=== PATIENT | female | born 1970 | race Two or more races ===

== ENCOUNTER 2017-07-20 21:34 | Emergency (ER) | payer SELFPAY ==
[~2017-07-20] VITALS: Ht 152.4 cm; Wt 61.2 kg
[2017-07-20] MEDS ORDERED: MORPHINE SULFATE 4 MG/1 ML DISP.SYRIN IM ONE (22:15)
[2017-07-20] MEDS ORDERED: ONDANSETRON 4 MG/2 ML VIAL IM ONE (22:15)
[2017-07-20] MEDS ORDERED: ONDANSETRON 4 MG/2 ML VIAL ONE (22:27)
[2017-07-20] MEDS ORDERED: MORPHINE SULFATE 4 MG/1 ML DISP.SYRIN ONE (22:27)
--- NOTE | 2017-07-20 22:34 | NUR ---
Patient discharged to home in stable conditon. Written and verbal after care instructions given. Patient verbalizes understanding of instructions.
[2017-07-20 22:35] VITALS: BP 110/82
== END 2017-07-20 22:36 | disposition home or self-care (01) ==
LOC: ER 21:37
DX: M54.30 Sciatica, unspecified side (principal)
CPT/HCPCS: 96372 ×2; 99284; A4663; J2270; J2405

== ENCOUNTER 2017-10-05 10:35 | Inpatient (IN) | payer OTHER ==
[~2017-10-05] VITALS: Ht 152.4 cm; Wt 61.2 kg
[2017-10-05 10:58] LABS: *BILIRUBIN,URIN NEGATIVE (NEGATIVE); *BLOOD, URINE 3+ (NEGATIVE); *CLARITY,URINE CLOUDY (CLEAR); *COLOR,URINE YELLOW (YELLOW); *KETONES,URINE NEGATIVE (NEGATIVE); *UROBILINOGEN,URINE 0.2 E.U./dl (NORMAL); LEUKOCYTE ESTERASE ,URINE 3+ (NEGATIVE); NITRITE, URINE POSITIVE (NEGATIVE); UGLUCOSE NEGATIVE (NEGATIVE)
[2017-10-05 11:01] LABS: *URINE HCG, QUAL NEGATIVE (NEGATIVE)
[2017-10-05 11:11] LABS: *PROTEIN,URINE 3+ (NEGATIVE)
--- NOTE | 2017-10-05 11:11 | NUR ---
urine protein 3+ er made aware, BRYCE Potts notified.
[2017-10-05 11:16] LABS: BACTERIA,URINE MANY /HPF (NONE SEEN); RBC,URINE 50-80 /HPF (0-3); SQUAMOUS EPITHELIAL CELL,UR FEW /HPF (NONE SEEN); WBC,URINE TNTC /HPF (0-3)
[2017-10-05] MEDS ORDERED: CEFTRIAXONE 1 G in IV DEXTROSE 5% 50 ML IV ONE (11:23)
[2017-10-05] MEDS ORDERED: PHENAZOPYRIDINE HCL 100 MG TABLET PO ONE (11:23)
[2017-10-05] MEDS ORDERED: IV NS 1000 ML 1,000 ML IV ONE (11:30)
[2017-10-05] MEDS ORDERED: CEFTRIAXONE 1 G VIAL ONE (11:56)
[2017-10-05] MEDS ORDERED: PHENAZOPYRIDINE HCL 100 MG TABLET ONE (11:57)
[2017-10-05] MEDS ORDERED: HYDROCODONE/APAP 5-325MG TABLET PO ONE (14:15)
[2017-10-05] MEDS ORDERED: HYDROCODONE/APAP 5-325MG TABLET ONE (14:33)
[2017-10-05 15:17] LABS: BASOPHILS # (AUTO) 0.1 K/uL (0.0-8.0); BASOPHILS % (AUTO) 0.6 % (0.0-2.0); EOSINOPHILS # (AUTO) 0.1 K/uL (0.0-0.7); EOSINOPHILS % (AUTO) 0.9 % (0.0-7.0); HEMATOCRIT 40.9 % (37-47); HEMOGLOBIN 13.6 G/DL (12.0-16.0); LYMPHOCYTES # (AUTO) 1.4 K/UL (0.8-4.8); LYMPHOCYTES % (AUTO) 13.6 % (20.5-51.5); MEAN CORPUSCULAR HEMOGLOBIN 28.7 UUG (27.0-31.0); MEAN CORPUSCULAR HGB CONC 33 g/dL (32.0-37.0); MEAN CORPUSCULAR VOLUME 86.2 FL (81.0-99.0); MONOCYTES # (AUTO) 0.6 K/UL (0.1-1.30); MONOCYTES % (AUTO) 6.2 % (0.0-11.0); NEUTROPHILS # (AUTO) 7.8 K/UL (1.8-8.9); NEUTROPHILS % (AUTO) 78.7 % (38.5-71.5); PLATELET COUNT (AUTO) 204 K/UL (150-450); RED BLOOD CELL COUNT(AUTO) 4.74 MIL/UL (4.2-5.4)
[2017-10-05 15:27] LABS: BILIRUBIN,TOTAL 0.4 mg/dL (0.2-1.0); CREATININE 0.8 mg/dL (0.6-1.3); POTASSIUM 3.9 mmol/L (3.5-5.1); TOTAL PROTEIN, SERUM 6.5 g/dL (6.4-8.2)
[2017-10-05] MEDS ORDERED: HYDROCODONE/APAP 10-325 MG TABLET PO PRN (16:00)
[2017-10-05] MEDS ORDERED: HYDROCODONE/APAP 5-325MG TABLET PO PRN (16:00)
[2017-10-05] MEDS ORDERED: MAGNESIUM HYDROXIDE 30 ML LIQUID UDC PO PRN (16:00)
[2017-10-05] MEDS ORDERED: ACETAMINOPHEN 325 MG TABLET PO PRN (16:00)
[2017-10-05] MEDS ORDERED: HYDROMORPHONE 1 MG/1 ML DISP.SYRIN IV PRN (16:00)
[2017-10-05] MEDS ORDERED: ONDANSETRON 4 MG/2 ML VIAL IV PRN (16:00)
[2017-10-05] MEDS ORDERED: Z GUARD REMEDY PASTE 57 GM TUBE TOP PRN (16:00)
--- NOTE | 2017-10-05 16:30 | NUR ---
PT IS STABLE, CALM, COOPERATIVE, AOX4, PT PAIN 2/10 REFUSES PAIN MEDICATION. PAIN GOAL IS 2 AND BELOW. AMBULATORY, REGULAR DIET, AND SKIN INTACT.
[2017-10-05] MEDS ORDERED: HYDROMORPHONE 4 MG/1 ML DISP.SYRIN IV PRN (16:45)
[2017-10-05 16:50] VITALS: BP 112/64
[2017-10-05 20:00] VITALS: BP 108/71
[2017-10-06] MEDS: IV NS 1000 ML 1,000 ML IV PRN ×2 (04:04→18:07)
--- NOTE | 2017-10-06 05:49 | NUR ---
Patient slept intermittently, in no acute distress. IVF running, no infiltration noted. Patient reported taking Cymbalta 30mg BID tablets at home. MD aware, orders to continue carried out. Addendum: 10/06/17 at 0554 by GATITO JOHNSON RN Add: Patient reports discomfort on low abdomen but declines pain medication. Made comfortable in bed, needs attended and met. Safety measures in place, will continue to monitor.
[2017-10-06 06:18] VITALS: BP 115/73
[2017-10-06 06:55] LABS: BASOPHILS % (AUTO) 0.4 % (0.0-2.0); EOSINOPHILS # (AUTO) 0.1 K/uL (0.0-0.7); EOSINOPHILS % (AUTO) 1.4 % (0.0-7.0); HEMATOCRIT 38.6 % (31.2-41.9); HEMOGLOBIN 13.2 g/dL (10.9-14.3); LYMPHOCYTES # (AUTO) 1.8 K/uL (20.0-40.0); LYMPHOCYTES % (AUTO) 19.1 % (20.5-51.5); MEAN CORPUSCULAR HEMOGLOBIN 29.7 uug (24.7-32.8); MEAN CORPUSCULAR HGB CONC 34 g/dL (32.3-35.6); MEAN CORPUSCULAR VOLUME 86.8 fL (75.5-95.3); MONOCYTES # (AUTO) 0.6 K/uL (2.0-10.0); NEUTROPHILS # (AUTO) 6.6 K/uL (1.8-8.9); NEUTROPHILS % (AUTO) 72.1 % (38.5-71.5); PLATELET COUNT (AUTO) 178 K/uL (179-408); RED BLOOD CELL COUNT(AUTO) 4.45 MIL/uL (3.63-4.92); WHITE BLOOD COUNT (AUTO) 9.2 K/uL (3.8-11.8)
[2017-10-06 07:21] LABS: CREATININE 0.7 mg/dL (0.6-1.3); POTASSIUM 3.7 mmol/L (3.5-5.1)
[2017-10-06 07:41] LABS: THYROID STIMULATING HORMONE 2.345 mIU/mL (0.358-3.740)
--- NOTE | 2017-10-06 08:00 | NUR ---
Pt is in no acute distress. Discussed plan of care with patient re: pain management, fall precaution. Pt agreeable with plan of care. Call light is within reach.
[2017-10-06] MEDS: DULOXETINE 30 MG CAPSULE.DR PO SCH ×2 (08:18→16:07)
[2017-10-06 11:57] VITALS: BP 109/71
[2017-10-06] MEDS: CEFTRIAXONE 1 G in IV DEXTROSE 5% 50 ML IV SCH (12:02)
[2017-10-06 15:54] VITALS: BP 127/76
[2017-10-06] MEDS ORDERED: DULO30CA2 PO (15:54)
--- NOTE | 2017-10-06 16:42 | NUR ---
PT states that she is having bloody urine. pt urinated and no hematuria noted. Will continue to assess pts urine via urine series. Pt is in no acute distress. Call light is within reach.
[2017-10-06 20:20] VITALS: BP 118/80
[2017-10-06] MEDS ORDERED: HYDROMORPHONE 1 MG/1 ML DISP.SYRIN IV PRN (20:30)
--- NOTE | 2017-10-06 21:00 | NUR ---
RN NOTES RECEIVED PATIENT LYING IN BED, AWAKE A/OX4, VERBALLY RESPONSIVE ABLE TO MAKE NEEDS KNOWN. HAS PAIN TO THE SUPRAPUBIC AREA, WILL MEDICATE ORDERED. HAS AN IV ACCESS TO THE L FA WITH IVF INFUSING, IV IS DRY AND INTACT WITH NO S/SX OF INFILTRATION OR PHLEBITIS NOTED. DUE MEDS GIVEN, SEE EMAR. VS ARE TAKEN AND RECORDED, STABLE, SEE FLOWSHEET. PM CARE PROVIDED. FALL PRECAUTIONS MAINTAINED AND SAFETY MEASURES REINFORCED. SKIN IS INTACT. ABLE TO AMBULATE INDEPENDENTLY TO THE BATHROOM, CALL LIGHT WITHIN REACH. WILL CONTINUE TO MONITOR.
[2017-10-06] MEDS: HYDROMORPHONE 4 MG/1 ML DISP.SYRIN IV PRN (21:15)
[2017-10-07] MEDS: HYDROMORPHONE 4 MG/1 ML DISP.SYRIN IV PRN ×3 (00:42→20:25)
--- NOTE | 2017-10-07 01:30 | NUR ---
RN NOTES ROUNDED. PT IS ASLEEP RESTING COMFORTABLY. NO S/SX OF DISTRESS NOTED. WILL CONTINUE TO MONITOR. SAFETY MAINTAINED.
[2017-10-07 06:54] VITALS: BP 121/87
[2017-10-07] MEDS: IV NS 1000 ML 1,000 ML IV PRN (07:57)
--- NOTE | 2017-10-07 08:00 | NUR ---
AWAKE ALERT COOPERATE WELL NO PAIN OR SOB CONTINUE IVF RERSTING WELL WITH CALL JOSUE IN REACH
[2017-10-07] MEDS: DULOXETINE 30 MG CAPSULE.DR PO SCH ×2 (08:41→16:43)
--- NOTE | 2017-10-07 11:00 | NUR ---
C/O H/A MED PO PRN GIVEN DR PACE SEE PATIENT AND LAB RESULT THIS AM AND NEW ORDER TO COLLECT UA TODAY
[2017-10-07 11:37] VITALS: BP 118/79
--- NOTE | 2017-10-07 12:00 | NUR ---
EAT LUNCH MOD AMT STATE H/A RELIEF BY PO MEDICATION URINE FOR UA SENT ORDER FAMILY DAUGHTER AT BEDSIDE
[2017-10-07] MEDS: CEFTRIAXONE 1 G in IV DEXTROSE 5% 50 ML IV SCH (12:15)
[2017-10-07 15:29] VITALS: BP 113/76
[2017-10-07 16:46] LABS: *BILIRUBIN,URIN NEGATIVE (NEGATIVE); *BLOOD, URINE Trace-intact (NEGATIVE); *COLOR,URINE YELLOW (YELLOW); *KETONES,URINE NEGATIVE (NEGATIVE); *PROTEIN,URINE NEGATIVE (NEGATIVE); *UROBILINOGEN,URINE 0.2 E.U./dl (NORMAL); LEUKOCYTE ESTERASE ,URINE 1+ (NEGATIVE); NITRITE, URINE NEGATIVE (NEGATIVE); UGLUCOSE NEGATIVE (NEGATIVE)
[2017-10-07 16:48] LABS: *CLARITY,URINE SLIGHTLY HAZY (CLEAR)
[2017-10-07 16:58] LABS: BACTERIA,URINE RARE /HPF (NONE SEEN); RBC,URINE 0-3 /HPF (0-3); SQUAMOUS EPITHELIAL CELL,UR FEW /HPF (NONE SEEN)
--- NOTE | 2017-10-07 17:45 | NUR ---
STABLE HEMODYNAMIC STATUS NO ACUTE DISTRESS NO PAIN OR N/V SAFETY MEASURE PROVIDED CALL LIGHT WITHIN REACH CONTINUE ON IVF
--- NOTE | 2017-10-07 20:00 | NUR ---
RN NOTES RECEIVED PATIENT LYING IN BED, AWAKE A/OX4, VERBALLY RESPONSIVE, ABLE TO MAKE NEEDS KNOWN. JENI IS AT BEDSIDE, READ TO PATIENT SOME OF HIS RESULTS THAT WERE DONE TODAY.DENIES PAIN OR ANY TYPE OF DISCOMFORT AT [facility]. HAS AN IV ACCESS TO THE L FA WITH IVF INFUSING, IV SITE STILI S DRY AND INTACT WITH NO S/SX OF INFILTRATION OR PHLEBITIS DUE MEDS GIVEN, SEE EMAR. VS ARE TAKEN AND RECORDED, STABLE, SEE FLOWSHEET. PM CARE PROVIDED. FALL PRECAUTIONS MAINTAINED AND SAFETY MEASURES REINFORCED. SKIN IS INTACT. ABLE TO AMBULATE INDEPENDENTLY TO THE BATHROOM, CALL LIGHT WITHIN REACH. WILL CONTINUE TO MONITOR.
[2017-10-07 20:12] VITALS: BP 121/80
[2017-10-08] MEDS: HYDROMORPHONE 4 MG/1 ML DISP.SYRIN IV PRN (00:05)
--- NOTE | 2017-10-08 05:40 | NUR ---
RN NOTES OFFERED PT PAIN MEDICATION, PT REMAINS FREEE OF PAIN. WASTED MED AND DISCONTINUED ORDERED.
[2017-10-08 06:25] VITALS: BP 107/77
--- NOTE | 2017-10-08 07:20 | NUR ---
RECEIVED REPORT FROM FELTING MACHINE OPERATOR HELPER NURSE, PATIENT IN BED AWAKE, NO EVIDENCE OF DISTRESS NOTED, BED IN LOW POSITION, SIDE RAILS UP X2. BED ALARM ON. PATIENT DOES NOT REPORT ANY PAIN, REINFORCED CALL LIGHT AND FALL PRECAUTIONS.
[2017-10-08] MEDS: DULOXETINE 30 MG CAPSULE.DR PO SCH (09:00)
[2017-10-08 11:58] VITALS: BP 116/75
[2017-10-08] MEDS: CEFTRIAXONE 1 G in IV DEXTROSE 5% 50 ML IV SCH ×2 (12:00→12:12)
[2017-10-08] MEDS: IV NS 1000 ML 1,000 ML IV PRN (13:49)
[2017-10-08 15:50] VITALS: BP_SYST 116; BP_SYST 121; BP_DIAS 75; BP_DIAS 83
--- NOTE | 2017-10-08 15:55 | NUR ---
Discharge teaching performed, provided patient with information on new prescription, provided a disc with radiologic results. IV removed, no evidence of bleeding, and patient was taken to be met by daughter and son for transportation home.
== END 2017-10-08 16:00 | disposition home or self-care (01) | DRG 463 ==
LOC: ER 10:35 → EDBD 16:10 → TELE 16:10 → MED 18:02
PROVIDERS: ADMIT Internal Medicine; ATTEND Nurse Practitioner Acute Care
DX: N10 Acute pyelonephritis (principal); N20.0 Calculus of kidney; B96.20 Unspecified Escherichia coli [E. coli] as the cause of diseases classified elsewhere; B37.3 Candidiasis of vulva and vagina; M54.9 Dorsalgia, unspecified; G89.29 Other chronic pain; Z80.9 Family history of malignant neoplasm, unspecified
CPT/HCPCS: 36415; 84443; 84703; 85025; 87077; 87086; A4663; J0696; J1170; J3490; J7030; J7060

== ENCOUNTER 2018-02-23 10:18 | Emergency (ER) | payer OTHER ==
[~2018-02-23] VITALS: Ht 152.4 cm; Wt 63.5 kg
[~2018-02-23 10:18] MED LIST: DULO30CA2 PO
--- NOTE | 2018-02-23 10:51 | NUR ---
PATIENT WAS SEEN BY DR LUNA FOR COUGH AND NOT FEELING WELL. STREP CULTURES OBTAINED AND SENT TO LAB.
--- NOTE | 2018-02-23 12:04 | NUR ---
DC, RX AND FOLLOW UP INSTRUCTIONS GIVEN AND EXPLAINED TO PATIENT WHO STATES SHE UNDERSTANDS ALL INSTRUCTIONS.
== END 2018-02-23 12:06 | disposition home or self-care (01) ==
LOC: ER 10:18
DX: J02.0 Streptococcal pharyngitis (principal); Z79.899 Other long term (current) drug therapy
CPT/HCPCS: 36415; 86403; 99283; A4663

== ENCOUNTER 2018-04-23 23:33 | Emergency (ER) | payer OTHER ==
[~2018-04-23] VITALS: Ht 157.5 cm; Wt 61.2 kg
--- NOTE | 2018-04-24 01:06 | NUR ---
DR PERICO COOPER MD AT BEDSIDE FOR MSE.
[2018-04-24 01:38] LABS: *BILIRUBIN,URIN NEGATIVE (NEGATIVE); *BLOOD, URINE NEGATIVE (NEGATIVE); *CLARITY,URINE CLEAR (CLEAR); *COLOR,URINE YELLOW (YELLOW); *KETONES,URINE NEGATIVE (NEGATIVE); *PROTEIN,URINE NEGATIVE (NEGATIVE); *UROBILINOGEN,URINE 0.2 E.U./dl (NORMAL); LEUKOCYTE ESTERASE ,URINE NEGATIVE (NEGATIVE); NITRITE, URINE NEGATIVE (NEGATIVE); UGLUCOSE NEGATIVE (NEGATIVE)
[2018-04-24 01:53] LABS: BACTERIA,URINE NONE SEEN /HPF (NONE SEEN); RBC,URINE 0-3 /HPF (0-3); SQUAMOUS EPITHELIAL CELL,UR MODERATE /HPF (NONE SEEN)
[2018-04-24 01:56] LABS: *URINE HCG, QUAL NEGATIVE (NEGATIVE)
--- NOTE | 2018-04-24 02:23 | NUR ---
PT RESTING IN BED W/ EYES CLOSED. BREATHING EVEN AND UNLABORED. NO ACUTE DISTRESS NOTED.
--- NOTE | 2018-04-24 03:41 | NUR ---
RADIOLOGY AT BEDSIDE FOR CHEST XRAY.
--- NOTE | 2018-04-24 04:29 | NUR ---
Patient discharged to home in stable conditon. Written and verbal after care instructions given. Patient verbalizes understanding of instructions. Pt ambulated from ER w/ steady gait. VSS. No distres noted. Denies CP, COB, N/V, dizziness. Pt took all personal belongings.
[2018-04-24 04:33] VITALS: BP 114/78
== END 2018-04-24 04:34 | disposition home or self-care (01) ==
LOC: ER 23:37
DX: J40 Bronchitis, not specified as acute or chronic (principal); N34.3 Urethral syndrome, unspecified; Z79.899 Other long term (current) drug therapy
CPT/HCPCS: 36415; 71045; 81001; 84703; 86403; 99285; A4663; 87086

== ENCOUNTER 2018-05-06 21:42 | Emergency (ER) | payer OTHER ==
[~2018-05-06] VITALS: Ht 154.9 cm; Wt 61.2 kg
--- NOTE | 2018-05-06 22:00 | NUR ---
Dr. Medina at bedside for MSE.
[2018-05-06] MEDS ORDERED: KETOROLAC TROMETHAMINE 30 MG INJ ONE (22:10)
[2018-05-06] MEDS ORDERED: KETOROLAC TROMETHAMINE 30 MG INJ IM ONE (22:15)
[2018-05-06 22:41] LABS: BASOPHILS % (AUTO) 0.6 % (0.0-2.0); EOSINOPHILS # (AUTO) 0.2 K/uL (0.0-0.7); EOSINOPHILS % (AUTO) 2.4 % (0.0-7.0); HEMATOCRIT 42.8 % (31.2-41.9); HEMOGLOBIN 14.4 g/dL (10.9-14.3); LYMPHOCYTES # (AUTO) 2.5 K/uL (20.0-40.0); LYMPHOCYTES % (AUTO) 33.9 % (20.5-51.5); MEAN CORPUSCULAR HEMOGLOBIN 28.5 uug (24.7-32.8); MEAN CORPUSCULAR HGB CONC 34 g/dL (32.3-35.6); MEAN CORPUSCULAR VOLUME 84.6 fL (75.5-95.3); MONOCYTES # (AUTO) 0.5 K/uL (2.0-10.0); MONOCYTES % (AUTO) 7.2 % (0.0-11.0); NEUTROPHILS # (AUTO) 4.1 K/uL (1.8-8.9); NEUTROPHILS % (AUTO) 55.9 % (38.5-71.5); PLATELET COUNT (AUTO) 209 K/uL (179-408); RED BLOOD CELL COUNT(AUTO) 5.05 MIL/uL (3.63-4.92); WHITE BLOOD COUNT (AUTO) 7.3 K/uL (3.8-11.8)
[2018-05-06 22:44] LABS: *BILIRUBIN,URIN NEGATIVE (NEGATIVE); *BLOOD, URINE 3+ (NEGATIVE); *CLARITY,URINE SLIGHTLY CLOUDY (CLEAR); *COLOR,URINE YELLOW (YELLOW); *KETONES,URINE TRACE (NEGATIVE); *PROTEIN,URINE NEGATIVE (NEGATIVE); *UROBILINOGEN,URINE 0.2 E.U./dl (NORMAL); LEUKOCYTE ESTERASE ,URINE TRACE (NEGATIVE); NITRITE, URINE NEGATIVE (NEGATIVE); UGLUCOSE NEGATIVE (NEGATIVE)
[2018-05-06 22:45] LABS: BILIRUBIN,DIRECT 0.1 mg/dL (0.0-0.2); BILIRUBIN,TOTAL 0.2 mg/dL (0.2-1.0); CREATININE 0.8 mg/dL (0.6-1.3); POTASSIUM 3.6 mmol/L (3.5-5.1); TOTAL PROTEIN, SERUM 6.4 g/dL (6.4-8.2)
[2018-05-06 22:50] LABS: *URINE HCG, QUAL NEGATIVE (NEGATIVE)
--- NOTE | 2018-05-06 22:56 | NUR ---
Pt out of ER for CT.
[2018-05-06 22:59] LABS: RBC,URINE 80-100 /HPF (0-3)
[2018-05-06 23:00] LABS: BACTERIA,URINE FEW /HPF (NONE SEEN); MUCUS,URINE FEW /LPF (0-FEW); SQUAMOUS EPITHELIAL CELL,UR MANY /HPF (NONE SEEN)
--- NOTE | 2018-05-06 23:07 | NUR ---
Pt back to ER from CT.
--- NOTE | 2018-05-07 00:39 | NUR ---
Patient discharged to home in stable conditon. Written and verbal after care instructions given. Patient verbalizes understanding of instructions. Patient ambulated out of ER with steady gait, no acute signs of distress, VSS, all belongings taken.
[2018-05-07 00:41] VITALS: BP 121/75
== END 2018-05-07 00:42 | disposition home or self-care (01) ==
LOC: ER 21:45
DX: R10.9 Unspecified abdominal pain (principal); Z79.899 Other long term (current) drug therapy
CPT/HCPCS: 36415; 74176; 80048; 80076; 81001; 83690; 84703; 85025; 96372; 99285; A4663; J1885

== ENCOUNTER 2018-05-14 15:28 | Emergency (ER) | payer OTHER ==
[~2018-05-14] VITALS: Ht 154.9 cm; Wt 63.5 kg
--- NOTE | 2018-05-14 16:28 | NUR ---
PT IS IN ROOM #2A. DR ROCA EVALUATED THE PT.
[2018-05-14 16:41] LABS: *AMPHETAMINE, URINE NEGATIVE (NEGATIVE); *BARBITURATE, URINE NEGATIVE (NEGATIVE); *CANNABINOID, URINE NEGATIVE (NEGATIVE); *COCCAINE, URINE NEGATIVE (NEGATIVE); *OPIATE, URINE NEGATIVE (NEGATIVE); *PHENCYCLIDINE SCREEN,URINE NEGATIVE (NEGATIVE)
--- NOTE | 2018-05-14 16:56 | NUR ---
PT WAS D/C TO HOME. D/C INSTRUCTIONS GIVEN TO THE PT.
[2018-05-14 16:57] VITALS: BP 132/66
== END 2018-05-14 16:58 | disposition home or self-care (01) ==
LOC: ER 15:31
DX: Z00.00 Encounter for general adult medical examination without abnormal findings (principal); Z79.899 Other long term (current) drug therapy
CPT/HCPCS: 80307; 99283; A4663

== ENCOUNTER 2018-09-04 18:57 | Emergency (ER) | payer OTHER ==
[~2018-09-04] VITALS: Ht 154.9 cm; Wt 63.5 kg
--- NOTE | 2018-09-04 19:10 | NUR ---
PATIENT WAS MSE AND EXAMINED BY DR ROCA IN ROOM 02B.
[2018-09-04] MEDS ORDERED: CEPHALEXIN MONOHYDRATE 500 MG CAPSULE ONE (19:22)
[2018-09-04] MEDS ORDERED: CEPHALEXIN MONOHYDRATE 500 MG CAPSULE PO ONE (19:30)
[2018-09-04 19:38] VITALS: BP 115/72
--- NOTE | 2018-09-04 19:40 | NUR ---
Patient discharged to home in stable conditon. Written and verbal after care instructions given. Patient verbalizes understanding of instructions.
== END 2018-09-04 19:40 | disposition home or self-care (01) ==
LOC: ER 19:00
DX: T81.49XA Infection following a procedure, other surgical site, initial encounter (principal)
CPT/HCPCS: A4663

== ENCOUNTER 2018-09-12 13:38 | Emergency (ER) | payer OTHER ==
[~2018-09-12] VITALS: Ht 154.9 cm; Wt 63.5 kg
--- NOTE | 2018-09-12 13:54 | NUR ---
Patient discharged to home in stable conditon. Written and verbal after care instructions given. Patient verbalizes understanding of instructions.
== END 2018-09-12 13:55 | disposition home or self-care (01) ==
LOC: ER 13:38
DX: R21 Rash and other nonspecific skin eruption (principal)
CPT/HCPCS: A4663

== ENCOUNTER 2019-05-15 12:54 | Emergency (ER) | payer OTHER ==
[~2019-05-15] VITALS: Ht 154.9 cm; Wt 59.0 kg
[2019-05-15 13:58] LABS: BASOPHILS % (AUTO) 0.5 % (0.0-2.0); EOSINOPHILS # (AUTO) 0.1 K/uL (0.0-0.7); EOSINOPHILS % (AUTO) 1.9 % (0.0-7.0); HEMATOCRIT 40.9 % (31.2-41.9); HEMOGLOBIN 13.6 g/dL (10.9-14.3); LYMPHOCYTES # (AUTO) 1.7 K/uL (20.0-40.0); LYMPHOCYTES % (AUTO) 22.5 % (20.5-51.5); MEAN CORPUSCULAR HEMOGLOBIN 28.2 uug (24.7-32.8); MEAN CORPUSCULAR HGB CONC 33 g/dL (32.3-35.6); MONOCYTES # (AUTO) 0.5 K/uL (2.0-10.0); MONOCYTES % (AUTO) 7.2 % (0.0-11.0); NEUTROPHILS # (AUTO) 5.1 K/uL (1.8-8.9); NEUTROPHILS % (AUTO) 67.9 % (38.5-71.5); PLATELET COUNT (AUTO) 222 K/uL (179-408); RED BLOOD CELL COUNT(AUTO) 4.81 MIL/uL (3.63-4.92); WHITE BLOOD COUNT (AUTO) 7.5 K/uL (3.8-11.8)
[2019-05-15 14:02] LABS: CREATININE 0.8 mg/dL (0.6-1.3)
--- NOTE | 2019-05-15 14:15 | NUR ---
PATIENT WAS SEEN BY MD. LABS COMPLETED. DC AND FOLLOW UP INSTRUCTIONS GIVEN AND EXPLAINED TO PATIENT WHO STATES SHE UNDERSTANDS ALL INSTRUCTIONS.
== END 2019-05-15 14:16 | disposition home or self-care (01) ==
LOC: ER 12:54
DX: B09 Unspecified viral infection characterized by skin and mucous membrane lesions (principal); Z79.899 Other long term (current) drug therapy
CPT/HCPCS: 36415; 85025; A4663

== ENCOUNTER 2019-08-08 23:57 | Inpatient (IN) | payer OTHER ==
[~2019-08-08] VITALS: Ht 165.1 cm; Wt 60.9 kg
[2019-08-09 01:05] LABS: BASOPHILS % (AUTO) 0.5 % (0.0-2.0); EOSINOPHILS # (AUTO) 0.2 K/uL (0.0-0.7); EOSINOPHILS % (AUTO) 1.8 % (0.0-7.0); HEMATOCRIT 43.3 % (31.2-41.9); HEMOGLOBIN 14.6 g/dL (10.9-14.3); LYMPHOCYTES # (AUTO) 2.4 K/uL (20.0-40.0); LYMPHOCYTES % (AUTO) 26.9 % (20.5-51.5); MEAN CORPUSCULAR HEMOGLOBIN 28.6 uug (24.7-32.8); MEAN CORPUSCULAR HGB CONC 34 g/dL (32.3-35.6); MEAN CORPUSCULAR VOLUME 84.9 fL (75.5-95.3); MONOCYTES # (AUTO) 0.5 K/uL (2.0-10.0); MONOCYTES % (AUTO) 5.3 % (0.0-11.0); NEUTROPHILS # (AUTO) 5.8 K/uL (1.8-8.9); NEUTROPHILS % (AUTO) 65.5 % (38.5-71.5); PLATELET COUNT (AUTO) 236 K/uL (179-408); WHITE BLOOD COUNT (AUTO) 8.9 K/uL (3.8-11.8)
[2019-08-09 01:10] LABS: CREATININE 0.8 mg/dL (0.6-1.3); POTASSIUM 3.7 mmol/L (3.5-5.1)
[2019-08-09 01:22] LABS: BILIRUBIN,DIRECT 0.1 mg/dL (0.0-0.2); BILIRUBIN,TOTAL 0.4 mg/dL (0.2-1.0); THYROID STIMULATING HORMONE 5.833 mIU/mL (0.358-3.740); TOTAL PROTEIN, SERUM 7.1 g/dL (6.4-8.2)
[2019-08-09] MEDS ORDERED: MORPHINE SULFATE 4 MG/1 ML DISP.SYRIN IV ONE (01:30)
[2019-08-09] MEDS ORDERED: IV NS 1000 ML 1,000 ML IV ONE (01:30)
--- NOTE | 2019-08-09 01:34 | NUR ---
DR WEBSTER SPOKE WITH DR GTZ NEUROLOGY CONSULT.
[2019-08-09] MEDS ORDERED: MORPHINE SULFATE 4 MG/1 ML DISP.SYRIN ONE (01:35)
--- NOTE | 2019-08-09 02:11 | NUR ---
Awaiting call back from El
[2019-08-09] MEDS ORDERED: ONDANSETRON 4 MG/2 ML VIAL IV PRN (03:00)
[2019-08-09] MEDS ORDERED: MAGNESIUM HYDROXIDE 30 ML LIQUID UDC PO PRN (03:00)
[2019-08-09] MEDS ORDERED: Z GUARD REMEDY PASTE 57 GM TUBE TOP PRN (03:00)
[2019-08-09] MEDS ORDERED: HYDROCODONE/APAP 5-325MG TABLET PO PRN (03:00)
--- NOTE | 2019-08-09 03:00 | NUR ---
Report given to BRYCE Hunter
--- NOTE | 2019-08-09 04:10 | NUR ---
Patient transported to [place] in stable condition.
--- NOTE | 2019-08-09 04:45 | NUR ---
Med Surg Admission Received patient via gurney, transported by ER nurse at 0400. Awake, alert and verbally responsive. Able to verbalize needs. Very pleasant and cooperative. Introduced self and made aware of room, and call light. Initial admission process initiated. All belongings accounted for, patient signed form and fully aware that hospital will not be liable for any loss that occurs. Family may bring belongings to home, just inform us. Identification band placed on patient. IV finished and discontinued. IV site is on R AC, intact and patent. Full physical assessment done, no skin breakdown noted. Pt verbalized 4/10 pain in the hips at rest, aggravates when turning, have to turn patient slowly to prevent pain. Pt also stated that she has no pain right now, but a few days ago has been experiencing pain in the thoracic/back area for the past few days. VS taken and recorded by Lisy AUSTIN, all within normal limits. Full interview done and recorded. Patient able to urinate on bed pain, clean urine sample collected and sent to the lab. Asked for turkey sandwich and juice, finished /. Tolerated well. Declined use of any pain medications at this time. All needs attended at this time. Will continue to Med Surg monitoring and endorse accordingly.
[2019-08-09 05:41] VITALS: BP 111/70
[2019-08-09 07:50] LABS: *BILIRUBIN,URIN NEGATIVE (NEGATIVE); *BLOOD, URINE NEGATIVE (NEGATIVE); *CLARITY,URINE CLEAR (CLEAR); *COLOR,URINE YELLOW (YELLOW); *KETONES,URINE NEGATIVE (NEGATIVE); *UROBILINOGEN,URINE 0.2 E.U./dl (NORMAL); LEUKOCYTE ESTERASE ,URINE NEGATIVE (NEGATIVE); NITRITE, URINE NEGATIVE (NEGATIVE); PH,URINE 5.5 (5.0-8.0); UGLUCOSE NEGATIVE (NEGATIVE)
[2019-08-09 07:56] LABS: *AMPHETAMINE, URINE NEGATIVE (NEGATIVE); *BARBITURATE, URINE NEGATIVE (NEGATIVE); *CANNABINOID, URINE NEGATIVE (NEGATIVE); *COCCAINE, URINE NEGATIVE (NEGATIVE); *OPIATE, URINE POSITIVE (NEGATIVE); *PHENCYCLIDINE SCREEN,URINE NEGATIVE (NEGATIVE)
--- NOTE | 2019-08-09 08:20 | NUR ---
Received patient awake in bed. AAox4. IV on R AC intact and patent. Neurological assessment performed. BLE extremity weakness noted. Patient able to follow command to move toes but unable to lift legs. Discussed plan of care with patient. Safety measures implemented. Will continue to monitor.
[2019-08-09] MEDS: ACETAMINOPHEN 325 MG TABLET PO PRN (09:44)
[2019-08-09 11:11] VITALS: BP 106/63
[2019-08-09] MEDS: HYDROCODONE/APAP 5-325MG TABLET PO PRN ×2 (12:53→19:37)
[2019-08-09 15:31] VITALS: BP 101/59
--- NOTE | 2019-08-09 18:28 | NUR ---
Patient complained of mid back/hip pain. Administered 1 dose of PRN Tylenol and [place] throughout shift. Tolerated. Patient resting in bed comfortably at this time. Rates pain of 2/10 on pain scale at this time. Will endorse to mold shifter nurse accordingly.
--- NOTE | 2019-08-09 19:30 | NUR ---
Received patient in bed awake, A&Ox4. No SOB noted, not in distress. Saline lock on R AC intact and patent. c/o 05/11 back and BLE pain, will medicated w/ PRN [place] 5-325mg. Patient able to move BLE. Safety measures observed. Call light within reach
[2019-08-09 20:26] VITALS: BP 101/70
--- NOTE | 2019-08-09 22:00 | NUR ---
For MRI of LSPINE w/o contrast in AM, MRI checklist done.
[2019-08-10] MEDS: HYDROCODONE/APAP 5-325MG TABLET PO PRN ×4 (03:51→19:46)
[2019-08-10 04:30] VITALS: BP 111/68
--- NOTE | 2019-08-10 06:30 | NUR ---
Patient slept intermittently. c/o 8/10 back pain, medicated w/ PRN [place]. Patient noted moving her legs but stating that she's worst than yesterday. Patient requesting to be transferred to different hosp, told patient that MRI of LSPINE will be done this AM to better diagnose her condition.
[2019-08-10 06:45] LABS: BASOPHILS % (AUTO) 0.5 % (0.0-2.0); EOSINOPHILS # (AUTO) 0.2 K/uL (0.0-0.7); EOSINOPHILS % (AUTO) 1.9 % (0.0-7.0); HEMOGLOBIN 14.7 g/dL (10.9-14.3); LYMPHOCYTES # (AUTO) 1.6 K/uL (20.0-40.0); LYMPHOCYTES % (AUTO) 20.2 % (20.5-51.5); MEAN CORPUSCULAR HEMOGLOBIN 28.5 uug (24.7-32.8); MEAN CORPUSCULAR HGB CONC 34 g/dL (32.3-35.6); MEAN CORPUSCULAR VOLUME 84.9 fL (75.5-95.3); MONOCYTES # (AUTO) 0.6 K/uL (2.0-10.0); NEUTROPHILS # (AUTO) 5.6 K/uL (1.8-8.9); NEUTROPHILS % (AUTO) 70.4 % (38.5-71.5); PLATELET COUNT (AUTO) 229 K/uL (179-408); RED BLOOD CELL COUNT(AUTO) 5.18 MIL/uL (3.63-4.92)
[2019-08-10 07:01] LABS: CREATININE 0.8 mg/dL (0.6-1.3); MAGNESIUM 2.1 mg/dL (1.8-2.4); PHOSPHOROUS 3.8 mg/dL (2.5-4.9); POTASSIUM 3.7 mmol/L (3.5-5.1)
[2019-08-10] MEDS: ACETAMINOPHEN 325 MG TABLET PO PRN (07:06)
[2019-08-10 07:08] LABS: THYROID STIMULATING HORMONE 3.666 mIU/mL (0.358-3.740)
[2019-08-10] MEDS: methylPREDNISolone SOD SUCC 40 MG/ML VIAL IV SCH ×2 (08:16→20:16)
--- NOTE | 2019-08-10 08:57 | NUR ---
folly catheter inserted per md orders
[2019-08-10 11:06] VITALS: BP 115/69
--- NOTE | 2019-08-10 11:12 | NUR ---
pt went to [facility] for mri via ambulances in stable condition
[2019-08-10 15:03] VITALS: BP 113/60
--- NOTE | 2019-08-10 19:30 | NUR ---
Received patient in bed awake, A&Ox4. Saline lock on R AC intact and patent. Patient able to move BLE. Safety measures observed. Call light within reach
[2019-08-10 19:58] VITALS: BP 106/63
[2019-08-10] MEDS ORDERED: ATORVASTATIN 10 MG TABLET PO SCH (21:00)
[2019-08-11] MEDS: HYDROCODONE/APAP 5-325MG TABLET PO PRN ×5 (00:15→18:04)
[2019-08-11 04:40] VITALS: BP 106/62
--- NOTE | 2019-08-11 07:30 | NUR ---
PATIENT IN BED RESTING, NO ACUTE DISTRESS NOTED, IV INTACT AND PATENT, NO C/O PAIN AT THIS TIME. SAFETY PROVIDED AT ALL TIMES. WILL CONTINUE TO MONITOR. CALL LIGHT WITHIN REACHED.
[2019-08-11] MEDS: methylPREDNISolone SOD SUCC 40 MG/ML VIAL IV SCH (08:23)
--- NOTE | 2019-08-11 11:00 | NUR ---
Received nursing handoff report. All needs attended and met at this time. No c/o pain or discomfort. Pt. able to stand with PT this AM. Zendejas d/c by previous RN, on monitoring for urinary retention. Safety measures in place. Will continue to monitor.
[2019-08-11 11:40] VITALS: BP 121/83
[2019-08-11 15:04] VITALS: BP 103/61
--- NOTE | 2019-08-11 18:51 | NUR ---
No significant change during this shift. Pt. kept clean, dry and comfortable. All due medications administered as ordered with no ASE. All pt. needs attended and met promptly. Safety measures and place. Frequent rounding performed. Will endorse to oncoming shift accordingly.
--- NOTE | 2019-08-11 19:45 | NUR ---
Received patient in bed awake A&Ox4. No complaints of pain at this time. Heplock on RFA intact and patent. Safety measures observed. Call light in reach
[2019-08-11] MEDS ORDERED: ATOR10TA PO (19:59)
[2019-08-11] MEDS ORDERED: HYDR-3326 PO (19:59)
[2019-08-11] MEDS ORDERED: METH4TAB3 PO (19:59)
[2019-08-11 20:00] VITALS: BP 111/68
--- NOTE | 2019-08-11 21:00 | NUR ---
Patient seen by Dr. Leigh w/ order for discharge to home. Discharge instructions given and understood by patient. Patient said she will call her PCP in AM at [facility] Tel #: [phone] to schedule for ff/up appt. All belongings sent home w/ patient. ID band and heplock removed. Patient was assisted to her car together w/ her family
== END 2019-08-11 21:00 | disposition home or self-care (01) | DRG 347 ==
LOC: ER 08-09 → MEDSURG3 08-09 03:27
PROVIDERS: ADMIT Nurse Practitioner Acute Care; ATTEND Internal Medicine
DX: M51.16 Intervertebral disc disorders with radiculopathy, lumbar region (principal); D25.9 Leiomyoma of uterus, unspecified; R53.1 Weakness; E03.9 Hypothyroidism, unspecified; M25.551 Pain in right hip; M25.552 Pain in left hip; M51.17 Intervertebral disc disorders with radiculopathy, lumbosacral region; F41.9 Anxiety disorder, unspecified; M48.07 Spinal stenosis, lumbosacral region; M48.061 Spinal stenosis, lumbar region without neurogenic claudication; Z87.440 Personal history of urinary (tract) infections; Z82.49 Family history of ischemic heart disease and other diseases of the circulatory system; M46.97 Unspecified inflammatory spondylopathy, lumbosacral region; E78.5 Hyperlipidemia, unspecified; G89.29 Other chronic pain
CPT/HCPCS: 36415; 72148; 80307; 83735; 84100; 84443; 85025; 85730; 93005; A4663; G0378; J2270; J2920; J7030

== ENCOUNTER 2019-12-19 21:40 | Emergency (ER) | payer OTHER ==
[~2019-12-19] VITALS: Ht 154.9 cm; Wt 63.5 kg
--- NOTE | 2019-12-19 22:10 | NUR ---
Patient discharged to home in stable conditon. Written and verbal after care instructions given. Patient verbalizes understanding of instructions. Walked out of ER with no distress noted.
== END 2019-12-19 22:11 | disposition home or self-care (01) ==
LOC: ER 21:40
DX: K04.7 Periapical abscess without sinus (principal); L03.90 Cellulitis, unspecified; Z79.899 Other long term (current) drug therapy
CPT/HCPCS: A4663